=== PATIENT | female | born 1940 | race Hispanic/Latino ===

== ENCOUNTER 2017-08-11 11:56 | Outpatient (CLI) | payer MEDICARE, BC ==
--- NOTE | 2017-08-11 16:40 | MRI ---
MRI OF THE LEFT SHOULDER WITHOUT IV CONTRAST: INDICATION: Left shoulder pain after a fall 2 weeks ago. FINDINGS: The biceps tendon is located. There is a SLAP tear involving the anterior superior and posterior sup erior glenoid labrum with some extension into the biceps anchor best seen on image 10 of series 4. T here is a partial thickness articular surface tear of the infraspinatus measuring 9.6 mm in its great est mediolateral dimensions. There is some intratendinous delamination involving the tendon at its f ootprint measuring approximately 4 mm on image 14 of series 5. No full-thickness tear is grossly debby dent. A small amount of fluid is seen in the subacromial subdeltoid space.. No muscular atrophy is evident. There is moderate AC joint osteoarthrosis with an anterior projecting osteophyte off the di stal clavicle causing mild encroachment. There is an intratendinous region of delamination involving the cranial subscapularis. No enlarged lymph nodes are evident. IMPRESSION: 1. Superior labrum anterior to posterior tear with tear extension into the proximal biceps anchor. 2. Partial-thickness articular surface tear of the mid infraspinatus near the footprint measuring ap proximately 1 cm. There is some intratendinolus delamination into the infraspinatus tendon at the fo otprint measuring approximately 4 mm in size. 3. Moderate acromioclavicular joint osteoarthrosis with mild encroachment. POS: [facility]
== END 2017-08-11 11:57 | disposition home or self-care (01) ==
LOC: SCSMRI 11:56
PROVIDERS: ATTEND Orthopaedic Surgery
DX: M25.512 Pain in left shoulder (principal); T14.8XXD Other injury of unspecified body region, subsequent encounter; M19.019 Primary osteoarthritis, unspecified shoulder

== ENCOUNTER 2017-09-01 23:11 | Emergency (ER) | payer MEDICARE, BC ==
--- NOTE | 2017-09-02 00:01 | RAD ---
LEFT SHOULDER THREE VIEWS: History: Trauma. Comparison: MRI 08-11-17 FINDINGS: There is a mildly comminuted left humeral neck fracture extending to the greater tuberosity. There is less than 1 cm displacement and less than 45 degrees angulation. IMPRESSION: Left humeral neck fracture extending to the greater tuberosity. POS: [facility]
[2017-09-02] MEDS ORDERED: Morphine 4 MG/ML VIAL ONE ×2 (00:05→01:12)
[2017-09-02] MEDS ORDERED: Fentanyl 100 MCG/2 ML VIAL ONE (00:09)
[2017-09-02] MEDS ORDERED: Ketorolac Tromethamine 30 MG/ML VIAL ONE (01:12)
[2017-09-02] MEDS ORDERED: Ondansetron HCl/PF 4 MG/2 ML Vial ONE (02:32)
== END 2017-09-02 02:45 | disposition home or self-care (01) ==
LOC: ERS 23:11
DX: S42.252A Displaced fracture of greater tuberosity of left humerus, initial encounter for closed fracture (principal); S42.292A Other displaced fracture of upper end of left humerus, initial encounter for closed fracture; E11.9 Type 2 diabetes mellitus without complications; Z79.899 Other long term (current) drug therapy; Z79.84 Long term (current) use of oral hypoglycemic drugs; W01.0XXA Fall on same level from slipping, tripping and stumbling without subsequent striking against object, initial encounter
CPT/HCPCS: 96374; 96375; J1885; J2270; J2405; J3010

== ENCOUNTER 2017-10-15 09:51 | Outpatient (CLI) | payer MEDICARE, BC | END 2017-10-15 09:52 | disposition home or self-care (01) | LOC: BICBD 09:51 | PROVIDERS: ATTEND Internal Medicine Rheumatology | DX: Z13.820 Encounter for screening for osteoporosis (principal); M85.852 Other specified disorders of bone density and structure, left thigh | CPT/HCPCS: 77080 ==

== ENCOUNTER 2018-01-14 07:38 | Outpatient (CLI) | payer MEDICARE, BC ==
--- NOTE | 2018-01-14 12:08 | NM ---
NUCLEAR MEDICINE GASTRIC EMPTYING EXAM: HISTORY: Epigastric pain with gastroesophageal reflux disease. TECHNIQUE: A nuclear medicine gastric emptying exam was performed after administration of 2 millicuries of techn etium 99m sulfur colloid mixed with eggs. FINDINGS: Approximately 42% emptying is seen in 30 minutes, approximately 73% emptying is seen in 1 hour, appro ximately 92% emptying is seen at 111 minutes, and 100% emptying is seen at 176 minutes. No gastroeso phageal reflux is seen during the examination. T-1/2 of gastric emptying is 34 minutes. IMPRESSION: Normal gastric emptying exam. POS: [facility]
== END 2018-01-14 07:39 | disposition home or self-care (01) ==
LOC: NM 07:38
PROVIDERS: ATTEND Internal Medicine Gastroenterology
DX: K21.0 Gastro-esophageal reflux disease with esophagitis (principal)
CPT/HCPCS: 78264; A9541

== ENCOUNTER 2018-05-18 07:40 | Outpatient (CLI) | payer MEDICARE, BC ==
--- NOTE | 2018-05-18 09:41 | MRI ---
MRI CERVICAL SPINE: HISTORY: Cervical radiculopathy, M54.12. FINDINGS: Multiplanar, multisequence, noncontrast-enhanced MR images cervical spine obtained. The spinal cord demonstrates some subtle areas of signal abnormality at the C4-5, C5-6, and C6-7 leve ls. This may be due to some myelomalacic changes due to the central disk protrusion at these levels. C1-2, C2-3: Unremarkable. C3-4: There is a mild broad-based disk bulge. No significant degree of central neural foraminal chary rowing is seen. C4-5: There is disk space height loss with irregularity involving the inferior end plate of C4 and s uperior end plate of C5. There is a broad-based central disk-osteophyte complex compressing the thec al sac resulting moderate compression of the thecal sac and mild compression of the spinal cord. The re is moderate bilateral C4-5 neural foraminal narrowing due to uncovertebral osteophyte hypertrophy. C5-6: Disk desiccation is seen. There is a broad-based disk-osteophyte complex centrally compressin g the thecal sac. This results in minimal but not significant evidence of spinal cord compression. The right neural foramen is patent. There is moderate to severe left C5-6 neural foraminal narrowing due to uncovertebral osteophyte hypertrophy. C6-7: Disk desiccation is seen. There is a broad-based disk-osteophyte complex extending from the l eft C6-7 lateral recess into the left C6-7 neural foramen. This results in severe left C6-7 neural f oraminal narrowing. Mild right-sided neural foraminal narrowing is seen. C7-T1: Unremarkable. IMPRESSION: Disk-osteophyte complexes resulting in bilateral C4-5, left C5-6 and C6-7 neural foraminal narrowing. POS: [facility]
== END 2018-05-18 07:41 | disposition home or self-care (01) ==
LOC: TBSIIMAG 07:40
PROVIDERS: ATTEND Orthopaedic Surgery
DX: M54.12 Radiculopathy, cervical region (principal); M99.81 Other biomechanical lesions of cervical region
CPT/HCPCS: 72141

== ENCOUNTER 2018-07-02 14:50 | Outpatient (CLI) | payer MEDICARE, BC ==
--- NOTE | 2018-07-02 16:22 | RAD ---
PA AND LATERAL CHEST RADIOGRAPH: Date: 07-02-18 History: Pre-operative evaluation. Comparison: 06-03-16 FINDINGS: Cardiac silhouette at the upper limits of normal in size. Pulmonary vasculature is within normal limi ts. Lungs are clear. No other interval change. IMPRESSION: 1. No acute cardiopulmonary process. POS: [facility]
== END 2018-07-02 14:51 | disposition home or self-care (01) ==
LOC: BICRAD 14:50
PROVIDERS: ATTEND Family Medicine
DX: Z01.818 Encounter for other preprocedural examination (principal)
CPT/HCPCS: 71046

== ENCOUNTER 2018-07-13 09:56 | Outpatient (CLI) | payer MEDICARE, BC ==
[2018-07-13 11:52] LABS: Hemoglobin 12.6 g/dL (12.0-16.0); Mean Corpuscular Hemoglobin 31.1 pg (27.0-31.0); Mean Corpuscular Volume 94.4 fL (78.0-98.0); Mean Platelet Volume 8.8 fL (7.4-10.4); Platelet Count 259 thou/uL (130-400); RBC Distribution Width 12.5 % (11.5-14.5); Red Blood Cell (RBC) Count 4.06 mill/uL (4.20-5.40); White Blood Cell (WBC) Count 8.1 thou/uL (4.8-10.8)
[2018-07-13 12:01] LABS: Anion Gap 14 mmol/L (10-20); BUN (Urea Nitrogen) 17 mg/dL (9.8-20.1); Calc. Creatinine Clearance 0 mL/min (70-130); Calcium 9.9 mg/dL (7.8-10.44); Carbon Dioxide 25 mmol/L (23-31); Chloride 104 mmol/L (98-107); Estimated GFR-MDRD 55; Glucose 104 mg/dL (83-110); Potassium 3.8 mmol/L (3.5-5.1); Sodium 139 mmol/L (136-145)
[2018-07-13 12:04] LABS: INR-International Normal Ratio 0.9; Prothrombin Time 12.4 SEC (12.0-14.7)
== END 2018-07-13 09:57 | disposition home or self-care (01) ==
LOC: LABBT 09:56
PROVIDERS: ATTEND Surgery
DX: Z01.818 Encounter for other preprocedural examination (principal); M47.12 Other spondylosis with myelopathy, cervical region; M47.22 Other spondylosis with radiculopathy, cervical region
CPT/HCPCS: 80048; 85027; 85610; 85730; 93005; 93010

== ENCOUNTER 2018-07-13 10:00 | Inpatient (IN) | payer MEDICARE, BC ==
[2018-07-13 10:32] VITALS: BMI 31.3
[2018-07-16] MEDS ORDERED: CEFAZOLIN/Water 2 GM/20 ML SYRINGE ONE (06:03)
[2018-07-16] MEDS ORDERED: Thrombin 5000 UNITS/5 ML VIAL ONE (06:35)
[2018-07-16] MEDS ORDERED: Sodium Chloride 0.9% 10 ML ONE (06:36)
[2018-07-16] MEDS ORDERED: Fentanyl 100 MCG/2 ML VIAL ONE ×2 (07:24→11:02)
[2018-07-16] MEDS ORDERED: Promethazine HCl 25 MG/ML VIAL IM PRN ×2 (10:19→10:26)
[2018-07-16] MEDS ORDERED: tiZANidine HCl 4 MG TAB PO PRN (10:19)
[2018-07-16] MEDS ORDERED: Milk Of Magnesia 30 ML UDCUP PO PRN (10:19)
[2018-07-16] MEDS ORDERED: Bisacodyl 10 MG SUPP PR PRN (10:19)
[2018-07-16] MEDS ORDERED: Fleet Enema 133 ML BOT PR PRN (10:19)
[2018-07-16] MEDS ORDERED: Acetaminophen/Codeine 30-300mg Tablet PO PRN (10:19)
[2018-07-16] MEDS ORDERED: HYDROcodone/Acetaminophen 7.5/325 mg Tablet PO PRN (10:19)
[2018-07-16] MEDS ORDERED: Acetaminophen 325 MG TAB PO PRN (10:19)
[2018-07-16] MEDS ORDERED: Mag-Al 1200 mg/1200 mg/30 ML UDCUP PO PRN (10:19)
[2018-07-16] MEDS ORDERED: PACU-Morphine 4MG/ML VIAL SLOW IVP PRN (10:26)
[2018-07-16] MEDS ORDERED: Promethazine HCl 25 MG/ML VIAL SLOW IVP PRN (10:26)
[2018-07-16] MEDS ORDERED: Meperidine HCl/PF 25 MG/ML VIAL SLOW IVP PRN (10:26)
[2018-07-16] MEDS ORDERED: Morphine Sulfate 2 MG/ML SYRINGE SLOW IVP PRN (10:26)
[2018-07-16] MEDS ORDERED: Ondansetron HCl/PF 4 MG/2 ML Vial IVP PRN (10:26)
[2018-07-16] MEDS ORDERED: HYDROmorphone 2 MG/ML VIAL SLOW IVP PRN (10:26)
[2018-07-16] MEDS: Sodium Chloride 0.9% 1,000 ML IV SCH (12:10)
--- NOTE | 2018-07-16 12:14 | OP ---
DATE OF PROCEDURE: 07/16/2018 LOCATION: OR 11. WOUND TYPE: Type 1 wound. SURGEON: Benson Post M.D. FURNACE INSTALLER: Rob Lara PA-C. 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 PROCEDURES: 1. Anterior C4-C5, C5-C6, C6-C7 diskectomies for decompression of spinal cord and nerve roots. 2. Preparation of endplates for arthrodesis with placement of interbody spacer packed with local bon e autograft obtained from same incision and allograft for arthrodesis C4-C5, C5-C6, C6-C7. 3. Anterior cervical plate and screw fixation C4-C5, C6-C7. 4. Use of operative microscope for microdissection. DESCRIPTION OF PROCEDURE: After informed consent was obtained from the patient, the patient brought to OR 11. Proper patient pause and the identification was carried out. She was placed in excellent endotracheal anesthesia and positioned supine on the OR table. All appropriate points were padded. A right anterior oblique garry was made for approach to the C4 through C7 spinal segments and this reg ion was sterilely cleansed, prepared, and draped. After proper patient pause and identification, the wound was then opened with a combination of sharp, monopolar and blunt dissection. We proceeded lat eral to the larynx, trachea, pharynx, esophagus bundle and medial to the right carotid sheath. We id entified the prevertebral layer of deep cervical fascia and the longus colli muscles were swept later ally and localization film confirmed our area of interest. We then brought the microscope in and per formed distraction at C4-C5 and a diskectomy and decompression of spinal cord and C5 nerve roots. En dplates were prepared and a spacer packed with graft was placed for arthrodesis. Distraction was the n released and distraction at C5-C6 then occurred and diskectomy was performed there for decompressio n of the neural elements. The spacer was then placed, packed with graft for arthrodesis at that segm ent and distraction then released. Again, the C6-C7 diskectomy was performed with decompression of s luma cord and nerve roots and endplates were prepared and an interbody spacer was again packed with graft and placed at C6-C7. The microscope was then removed and anterior cervical plate and screw fix ation occurred with gross and fluoroscopic visualization at C4, C5, C6, C7, satisfied with our constr uct, hemostasis was maximized throughout. The wound was copiously irrigated and closed in anatomic l tong over a drain. The patient then emerged from anesthesia.
[2018-07-16] MEDS: CEFAZOLIN/Water 2 GM/20 ML SYRINGE SLOW IVP SCH ×2 (14:19→21:05)
[2018-07-16] MEDS ORDERED: Prevnar 13-Val Conj/PF 0.5 ML SYRINGE IM ONE (16:00)
[2018-07-16] MEDS: metFORMIN 500 MG TAB PO SCH (18:06)
[2018-07-16] MEDS: Pregabalin 75 MG CAP PO SCH (20:55)
[2018-07-16] MEDS ORDERED: Atorvastatin Calcium 10 MG TAB PO SCH (21:00)
[2018-07-16] MEDS: traMADol HCl 50 MG TAB PO PRN (21:00)
[2018-07-17] MEDS: CEFAZOLIN/Water 2 GM/20 ML SYRINGE SLOW IVP SCH (06:00)
[2018-07-17] MEDS ORDERED: Dapagliflozin Propanediol [Farxiga] 10 MG PO SCH (09:00)
[2018-07-17] MEDS ORDERED: Alogliptin 25 MG TAB PO SCH (09:00)
[2018-07-17] MEDS ORDERED: Losartan 25 MG TAB PO SCH (09:00)
[2018-07-17] MEDS ORDERED: Pregabalin 75 MG CAP ONE (09:54)
[2018-07-17] MEDS: traMADol HCl 50 MG TAB PO PRN ×2 (10:00→17:32)
[2018-07-17] MEDS: metFORMIN 500 MG TAB PO SCH ×2 (10:00→17:32)
[2018-07-17] MEDS: Pregabalin 75 MG CAP PO SCH (10:00)
--- NOTE | 2018-07-17 11:26 | PRG ---
DATE OF SERVICE: 07/17/2018 SUBJECTIVE: Ms. Rosenbaum is now postoperative day #1, having undergone C4-C7 ACDF. Her drain output has been zero overnight. She does have a sore throat and some posterior neck pain, but otherwise imp rovement in symptoms, especially into left upper extremity pain. She has good strength in the bilate ral upper extremities. She is not currently wearing her [place] J collar, although it is in bed. PLAN: She does live alone and will possibly need inpatient rehab, so we will have case management wo rk on this for us. Otherwise, the patient is cleared for discharge once arrangements have been made. Please call with changes in patient's neurologic status.
[2018-07-17] MEDS: Sodium Chloride 0.9% 1,000 ML IV SCH (12:40)
[2018-07-17 18:43] VITALS: BP 145/79; TEMP 97.2
== END 2018-07-17 18:43 | DRG 472 ==
LOC: SURG A 07-16 05:39
PROVIDERS: ADMIT Surgery; ATTEND Surgery
PROC: 0RG20A0 Fusion of 2 or more Cervical Vertebral Joints with Interbody Fusion Device, Anterior Approach, Anterior Column, Open Approach (ICD-10-PCS; principal; 2018-07-16)
DX: M48.02 Spinal stenosis, cervical region (principal); M47.12 Other spondylosis with myelopathy, cervical region; M54.12 Radiculopathy, cervical region
CPT/HCPCS: 36416; 76001; 80048; 85027; 85610; 85730; 93005; 93010; 96374; C1713; C1776; G8978-GP-CL; G8979-GP-CJ; G8987-GO-CJ; G8988-GO-CI; G8996-GN-CJ; G8997-GN-CH; J0131; J2270; J3010; J3490

== ENCOUNTER 2018-09-02 09:33 | Outpatient (CLI) | payer MEDICARE, BC ==
--- NOTE | 2018-09-02 11:06 | RAD ---
CERVICAL SPINE THREE VIEWS: History: 78-year-old female with history of cheiralgia. Cervical radiculopathy. Status post neck surgery. FINDINGS: Anterior cervical fusion changes are noted at C4, C5, C6, and C7 with intradiscal prosthesis. No evid ence for malalignment. No significant abnormal prevertebral soft tissue swelling. There is internal f acet arthrosis changes. IMPRESSION: Anterior cervical fusion changes at C4, C5, C6 and C7. No significant malalignment. POS: [facility]
== END 2018-09-02 09:34 | disposition home or self-care (01) ==
LOC: TBSIIMAG 09:33
PROVIDERS: ATTEND Surgery
DX: M47.12 Other spondylosis with myelopathy, cervical region (principal); M47.22 Other spondylosis with radiculopathy, cervical region; M50.10 Cervical disc disorder with radiculopathy, unspecified cervical region; M50.00 Cervical disc disorder with myelopathy, unspecified cervical region
CPT/HCPCS: 72040

== ENCOUNTER 2019-01-15 09:19 | Outpatient (CLI) | payer MEDICARE, BC ==
--- NOTE | 2019-01-15 10:05 | BD ---
EXAM: Bone densitometry using DEXA HISTORY: 78 yo female. Screening for postmenopausal osteoporosis FINDINGS: L1--bone mineral density 0.815 g/sq cm; T score -1.6 ; Z score 0.7 L2--bone mineral density 0.917 g/sq cm; T score -1.0 ; Z score 1.5 L3--bone mineral density 0.944 g/sq cm; T score -1.3 ; Z score 1.4 L4--bone mineral density 1.043 g/sq cm; T score -0.2 ; Z score 2.6 Total L1-L4--bone mineral density 0.935 g/sq cm; T score -1.0 ; Z score 1.5 Left femoral neck--bone mineral density0.648; T score -1.8 ; Z score 0.4 Total proximal left femur--bone mineral density 0.838; T score -0.9 ; Z score 1.1 The 10 year fracture risk for a major osteoporotic fracture is 10% and for hip fracture is 2.7% IMPRESSION: Osteopenia
== END 2019-01-15 09:20 | disposition home or self-care (01) ==
LOC: BICMAMMO 09:19
PROVIDERS: ATTEND Internal Medicine Rheumatology
DX: M81.0 Age-related osteoporosis without current pathological fracture (principal); M85.89 Other specified disorders of bone density and structure, multiple sites
CPT/HCPCS: 77080

== ENCOUNTER 2019-02-08 08:41 | Outpatient (CLI) | payer MEDICARE, BC ==
--- NOTE | 2019-02-08 10:10 | RAD ---
Esophagram air contrast HISTORY: Dysphagia. Burning chest pain. FINDINGS: Air contrast and single column barium evaluation of the esophagus shows diminished primary and secondary peristalsis. Moderate degree of nonpropulsive tertiary type contractions. Small hiatal hernia with moderate amount of gastroesophageal reflux. A 12 mm barium tablet traversed the esophagus without holdup. IMPRESSION: Small hiatal hernia with gastroesophageal reflux. Presbyesophagus. No evidence of esophageal mass or obstruction.
== END 2019-02-08 08:42 | disposition home or self-care (01) ==
LOC: RAD 08:41
PROVIDERS: ATTEND Physician Assistant Medical
DX: R13.10 Dysphagia, unspecified (principal); R10.13 Epigastric pain; K21.9 Gastro-esophageal reflux disease without esophagitis; K44.9 Diaphragmatic hernia without obstruction or gangrene
CPT/HCPCS: 74220

== ENCOUNTER 2019-03-02 10:55 | Outpatient (CLI) | payer MEDICARE, BC ==
--- NOTE | 2019-03-03 16:39 | RAD ---
MODIFIED BARIUM SWALLOW: 03/03/19 CLINICAL INDICATION: Dysphagia, unspecified; feeding difficulties. FINDINGS: There is oral ingestion of varying consistencies of barium contrast with trace laryngeal penetration although no tracheal aspiration identified. Correlate with speech pathology report for further detail s. IMPRESSION: Trace laryngeal penetration. POS: [facility]
== END 2019-03-02 10:56 | disposition home or self-care (01) ==
PROVIDERS: ATTEND Physician Assistant Medical
DX: R13.10 Dysphagia, unspecified (principal); R63.3 Feeding difficulties
CPT/HCPCS: 74230

== ENCOUNTER 2019-04-21 09:22 | Outpatient (CLI) | payer MEDICARE, BC | END 2019-04-21 09:23 | disposition home or self-care (01) | PROVIDERS: ATTEND Physician Assistant Medical | DX: R13.10 Dysphagia, unspecified (principal); R63.3 Feeding difficulties | CPT/HCPCS: 74230 ==

== ENCOUNTER 2019-05-28 19:30 | Outpatient (CLI) | payer MEDICARE, BC | END 2019-05-28 19:31 | disposition home or self-care (01) | LOC: SLEEPLAB 19:30 | PROVIDERS: ATTEND Family Medicine | DX: G47.33 Obstructive sleep apnea (adult) (pediatric) (principal); R06.83 Snoring; G47.10 Hypersomnia, unspecified; E11.9 Type 2 diabetes mellitus without complications; E78.5 Hyperlipidemia, unspecified; I73.9 Peripheral vascular disease, unspecified; K57.92 Diverticulitis of intestine, part unspecified, without perforation or abscess without bleeding; K85.90 Acute pancreatitis without necrosis or infection, unspecified; M19.90 Unspecified osteoarthritis, unspecified site; R13.10 Dysphagia, unspecified; G62.9 Polyneuropathy, unspecified; I45.9 Conduction disorder, unspecified; G47.61 Periodic limb movement disorder; R09.02 Hypoxemia | CPT/HCPCS: 95810 ==

== ENCOUNTER 2019-06-30 19:30 | Outpatient (CLI) | payer MEDICARE, BC | END 2019-06-30 19:31 | disposition home or self-care (01) | LOC: SLEEPLAB 19:30 | PROVIDERS: ATTEND Family Medicine | DX: G47.33 Obstructive sleep apnea (adult) (pediatric) (principal); E78.5 Hyperlipidemia, unspecified; E11.40 Type 2 diabetes mellitus with diabetic neuropathy, unspecified; E11.51 Type 2 diabetes mellitus with diabetic peripheral angiopathy without gangrene; I10 Essential (primary) hypertension; G47.61 Periodic limb movement disorder | CPT/HCPCS: 95811 ==

== ENCOUNTER → 2019-08-31 | Day surgery (SDC) | payer MEDICARE, BC ==
[~2019-08-31] MED LIST: Benzocaine 20% Spray 60 ML CAN ONE
== END ==
LOC: ENDO/OP 07:33
PROVIDERS: ATTEND Internal Medicine Gastroenterology
DX: R13.12 Dysphagia, oropharyngeal phase (principal); E11.9 Type 2 diabetes mellitus without complications; E78.00 Pure hypercholesterolemia, unspecified; I10 Essential (primary) hypertension; Z79.84 Long term (current) use of oral hypoglycemic drugs; Z79.899 Other long term (current) drug therapy; Z88.0 Allergy status to penicillin

== ENCOUNTER 2019-10-19 12:50 | Outpatient (CLI) | payer MEDICARE, BC ==
[2019-10-19] MEDS ORDERED: Magnevist 469MG/ML 20 ML VIAL ONE ×2 (13:44)
--- NOTE | 2019-10-19 14:48 | MRI ---
CERVICAL SPINE MRI WITH AND WITHOUT CONTRAST: HISTORY: Headache at the base of skull. Right arm numbness. Fusion surgery July 16, 2019. COMPARISON: 05/18/2018. TECHNIQUE: Cervical spine MRI is performed with and without intravenous gadolinium administration. Multisequenti al, multiplanar imaging was performed. FINDINGS: Anterior fusion plate with transvertebral body screw from C4 through C7. Metallic susceptibility talia fact is noted from the C4-C7 levels. Remaining cervical vertebrae and visualized upper thoracic vertebrae have appropriate signal intensity. No fracture. No significant STIR hyperintensity to suggest vertebral body edema or ligamentous injury. Spondylolisthesis: 2.8 mm of anterolisthesis of C2 upon C3 and 2.4 mm of anterolisthesis of 3 upon C4. Postcontrast images do not demonstrate any abnormal enhancement with regards to the vertebral bodies. Visualized brain parenchyma, cervicomedullary junction, cervical cord and the upper thoracic cord hav e a normal size and signal intensity. No cord malacia, cord atrophy or pathologic enhancement. C2-C3: No significant central canal stenosis. Mild bilateral foraminal narrowing. C3-C4: No significant canal stenosis. Mild bilateral foraminal narrowing. C4-C5: Broad-based disc-osteophyte results in moderate central canal stenosis. There is deformity of the cervical cord, without cord hyperintensity. The degree of central canal stenosis has not changed since the previous exam. Moderate to severe bilateral foraminal narrowing.. C5-C6: Broad-based disc-osteophyte complex abuts the thecal sac. Subarachnoid space is still maintain ed. Nevertheless, there is flattening of the thecal sac and cervical cord. Mild to moderate central canal stenosis. Mild to moderate bilateral foraminal narrowing. C6-C7: Broad-based disc-osteophyte complex abuts the thecal sac. Subarachnoid space is maintained. No significant cord abnormality. Right neural foramen is patent. Moderate to severe left foraminal narrowing. C7-T1: No significant central canal stenosis. Neural foramina are patent. IMPRESSION: 1. Interval cervical fusion from C4 through C7. No evidence of abnormal signal intensity. 2. Persistent anterolisthesis of C2 upon C3 and C3 upon C4. 3. Moderate to severe bilateral foraminal narrowing at C4-C5 and moderate to severe left foraminal na rrowing at C6-C7. 4. Moderate central canal stenosis at C4-C5 and mild to moderate central canal stenosis at C5-C6. Transcribed Date/Time: 10/19/2019 3:12 PM
--- NOTE | 2019-10-19 15:03 | CT ---
CT OF THE CERVICAL SPINE: DATE: 10/19/2019. HISTORY: Headaches, pain at the skull base, numbness of the right upper extremity. TECHNIQUE: Axial CT imaging at 2 mm intervals through the cervical spine without contrast. Coronal and sagittal reformatted imaging obtained. FINDINGS: Imaged lung apices unremarkable. Anterior diskectomy and fusion hardware present at the C4-5/C5-6/C6 -7 levels. There is questionable subtle lucency adjacent to the distal tip of the anterior fusion screws at the C4, C5, and C6 levels. The fusion plate is not flush with the ventral aspect of the C4, C5, or C6 ve rtebral bodies, which is difficult to assess for interval change when compared to prior radiographs s econdary to the degree of streak artifact. This finding may signify that the fusion plate has slight ly backed away from the ventral aspect of the vertebral bodies but this could potentially be on the b asis of anterior osteophyte formation associated with these vertebral bodies limiting the ability of the fusion plate to be flush with the anterior vertebral body margins. The craniocervical junction appears intact. There is moderate degenerative change at the atlantoaxia l interspace. There is minimal anterolisthesis at C2-3 and C3-4. Evaluation for central canal and/or neural foraminal stenosis is limited on routine CT. C2-3: Bilateral facet and uncovertebral osteophyte formation, right greater than left. There is fra gmentation of facet joint osteophyte on the right extending into the right neural foramen with probab le moderate right neural foraminal stenosis. No osseous cause of significant central canal or neural foraminal stenosis. C3-4: Mild bilateral facet hypertrophy, right greater than left. No osseous cause of significant ce ntral canal or neural foraminal stenosis. C4-5: There is disk space narrowing with degenerative end plate change and posterior osteophyte. Th ere is an intervertebral disk device present. There is facet and uncovertebral osteophyte formation. Posterior osteophyte causes probable mild central canal stenosis. Moderate bilateral neural forami nal stenosis on the basis of facet and uncovertebral osteophyte formation noted, left greater than ri ght. C5-6: There is disk space narrowing and degenerative end plate change with intervertebral disk devic e. There is posterior osteophyte formation with mild central canal stenosis. There is significant b ilateral facet and uncovertebral osteophyte formation, left greater than right, with severe left and mild right neural foraminal stenosis. C6-7: Prominent left-sided facet and uncovertebral osteophyte formation with severe left neural fora john stenosis. No osseous cause of significant central canal or right neural foraminal stenosis. T here is disk space narrowing with degenerative end plate change and vacuum disk formation. C7-T1: No osseous cause of significant central canal or neural foraminal stenosis. No worrisome or lytic blastic bone lesion. No acute fracture or evidence of dislocation. IMPRESSION: Multilevel postoperative and degenerative change within the cervical spine as detailed above. There is questionable subtle lucency adjacent to the distal tips of the anterior screws at C4, C5, and C6 w hich may signify a degree of loosening of the hardware. Recommend correlation with radiographs of th e cervical spine to be compared to the 09/02/2018 cervical spine radiographs. CODE T POS: [facility]
--- NOTE | 2019-10-19 15:18 | MRI ---
Exam: Brain MRI with and without contrast HISTORY: Headache. Dizziness. Right arm numbness. COMPARISON: None FINDINGS: Gradient echo sequence: No hemorrhage Calvarium: Appropriate T1 marrow signal intensity Midline brain parenchyma: Unremarkable Cerebrum:No parenchymal mass, mass effect or midline shift. Age-appropriate atrophy. Cortical hannah-wh ite matter differentiation is preserved. Minimal T2 and FLAIR white matter hyperintensities, likely chronic small vessel ischemic change Ventricles: No evidence of hydrocephalus. Sinuses and mastoid air cells: Adequate aeration Diffusion: Central arterial flow is maintained. Absent restricted diffusion. Postcontrast images: No pathologic enhancement of the brain parenchyma. IMPRESSION: Unremarkable pre and postcontrast brain MRI.
--- NOTE | 2019-10-19 15:19 | RAD ---
EXAM: 5 views of the cervical spine HISTORY: Headaches COMPARISON: None FINDINGS: AP, lateral, flexion/extension, and open mouth odontoid views of the cervical spine shows t he patient to be status post anterior fusion of C4-C7 with an anterior plate and screws. The plate is not completely adjacent to the anterior aspect of the vertebral bodies. There may be a small amoun t of lucency surrounding the screws at C4, C5, and C6. Disc spacers are seen in the intervening disc spaces. Alignment is unchanged with flexion and extension. IMPRESSION: Postsurgical changes of cervical spine with questionable hardware loosening.
== END 2019-10-19 12:51 | disposition home or self-care (01) ==
LOC: TBSIIMAG 12:50
PROVIDERS: ATTEND Physician Assistant Surgical
DX: M48.02 Spinal stenosis, cervical region (principal); M50.10 Cervical disc disorder with radiculopathy, unspecified cervical region; H53.8 Other visual disturbances; R51 Headache; R42 Dizziness and giddiness; G95.89 Other specified diseases of spinal cord; M43.12 Spondylolisthesis, cervical region; Z98.1 Arthrodesis status
CPT/HCPCS: 70553; 72050; 72125; 72156; 82565; A9579

== ENCOUNTER 2019-12-23 08:43 | Inpatient (IN) | payer MEDICARE, BC ==
[2019-12-22 14:10] VITALS: BMI 31.3
[2019-12-23] MEDS ORDERED: PHENYLEPHRINE-NS 100 MCG/ML 10 ML SYRINGE ONE (10:02)
[2019-12-23] MEDS ORDERED: diphenhydrAMINE 50 MG/ML VIAL ONE (10:02)
[2019-12-23] MEDS ORDERED: EPHEDRINE 25 MG/5 ML SYRINGE ONE (10:02)
[2019-12-23] MEDS ORDERED: Rocuronium Bromide 10 MG/ML (10ML VIAL) ONE (10:02)
[2019-12-23] MEDS ORDERED: Dexamethasone 20 MG/5 ML VIAL ONE (10:02)
[2019-12-23] MEDS ORDERED: PROPOFOL 200 MG/20 ML VIAL ONE (10:02)
[2019-12-23] MEDS ORDERED: Ondansetron PF 4 MG/2 ML Vial ONE (10:02)
[2019-12-23] MEDS ORDERED: Glycopyrrolate 0.2 MG/ML 5 ML SYRINGE ONE (10:02)
[2019-12-23 10:53] LABS: Mean Corpuscular HGB CONC 33.1 g/dL (32.0-36.0); Mean Corpuscular Hemoglobin 31.1 pg (27.0-31.0); Mean Corpuscular Volume 93.9 fL (78.0-98.0); Mean Platelet Volume 8.5 fL (7.4-10.4); Platelet Count 240 thou/uL (130-400); RBC Distribution Width 12.4 % (11.5-14.5); Red Blood Cell (RBC) Count 3.85 mill/uL (4.20-5.40); White Blood Cell (WBC) Count 7.6 thou/uL (4.8-10.8)
[2019-12-23 10:59] LABS: PTT 28.5 SEC (22.9-36.1); Prothrombin Time 12.8 SEC (12.0-14.7)
[2019-12-23 11:12] LABS: Anion Gap 14 mmol/L (10-20); BUN (Urea Nitrogen) 25 mg/dL (9.8-20.1); Calc. Creatinine Clearance 37 mL/min (70-130); Carbon Dioxide 26 mmol/L (23-31); Chloride 103 mmol/L (98-107); Estimated GFR-MDRD 39; Glucose 93 mg/dL (83-110); Potassium 4.8 mmol/L (3.5-5.1); Sodium 138 mmol/L (136-145)
[2019-12-23] MEDS ORDERED: Thrombin 5000 UNITS/5 ML VIAL ONE (11:34)
[2019-12-23] MEDS ORDERED: Bacitracin Zinc Ointment 30 gm TUBE ONE (11:34)
[2019-12-23] MEDS ORDERED: Fentanyl 100 MCG/2 ML VIAL ONE ×4 (11:38→15:37)
--- NOTE | 2019-12-23 12:22 | EKG ---
Test Reason : PREOP Blood Pressure : / mmHG Vent. Rate : 048 BPM Atrial Rate : 048 BPM P-R Int : 148 ms QRS Dur : 084 ms QT Int : 476 ms P-R-T Axes : 028 -09 025 degrees QTc Int : 425 ms Marked sinus bradycardia Abnormal ECG When compared with ECG of 13-JUL-2018 11:02, No significant change was found Confirmed by AIDE RIVERS, SGuy ([id number]) on 12/23/2019 12:22:08 PM Referred By: AYAKA Confirmed By:DR. Delaney NOBLE MD
[2019-12-23] MEDS ORDERED: PROPOFOL 20 ML ONE (14:16)
[2019-12-23] MEDS ORDERED: Fleet Enema 133 ML BOT PR PRN (14:46)
[2019-12-23] MEDS ORDERED: Ondansetron PF 4 MG/2 ML Vial IVP PRN (14:46)
[2019-12-23] MEDS ORDERED: Bisacodyl 10 MG SUPP PR PRN (14:46)
[2019-12-23] MEDS ORDERED: HYDROcodone/Acetaminophen 7.5/325 mg Tablet PO PRN (14:46)
[2019-12-23] MEDS ORDERED: Milk Of Magnesia 30 ML UDCUP PO PRN (14:46)
[2019-12-23] MEDS ORDERED: Mag-Al 1200 mg/1200 mg/30 ML UDCUP PO PRN (14:46)
[2019-12-23] MEDS ORDERED: Acetaminophen 325 MG TAB PO PRN (14:46)
[2019-12-23] MEDS: Morphine 2 MG/ML SYRINGE SLOW IVP PRN ×2 (17:23→19:58)
[2019-12-23] MEDS: Sodium Chloride 0.9% 1,000 ML IV SCH (17:23)
[2019-12-23] MEDS: metFORMIN 500 MG TAB PO SCH (17:23)
[2019-12-23] MEDS: Acetaminophen/Codeine 30-300mg Tablet PO PRN ×2 (18:36→22:24)
[2019-12-23] MEDS: Pregabalin 75 MG CAP PO SCH (19:57)
[2019-12-23] MEDS: Atorvastatin Calcium 10 MG TAB PO SCH (19:58)
[2019-12-23] MEDS: CEFAZOLIN 2 GM in Premix Bag 1 BAG IVPB SCH (19:58)
[2019-12-24] MEDS: CEFAZOLIN 2 GM in Premix Bag 1 BAG IVPB SCH ×3 (04:11→20:46)
[2019-12-24] MEDS: Sodium Chloride 0.9% 1,000 ML IV SCH ×2 (04:15→17:05)
[2019-12-24] MEDS: Acetaminophen/Codeine 30-300mg Tablet PO PRN ×2 (06:41→12:12)
[2019-12-24] MEDS ORDERED: Cepastat Lozenges 1 LOZ PO PRN (07:49)
[2019-12-24] MEDS: Alogliptin 6.25 MG TAB PO SCH (08:27)
[2019-12-24] MEDS: tiZANidine HCl 4 MG TAB PO PRN ×2 (08:27→17:41)
[2019-12-24] MEDS: traMADol HCl 50 MG TAB PO PRN ×3 (08:27→23:21)
[2019-12-24] MEDS: Pregabalin 75 MG CAP PO SCH ×2 (08:29→20:46)
[2019-12-24] MEDS: Losartan 25 MG TAB PO SCH (08:29)
[2019-12-24] MEDS: Empagliflozin 25 MG TAB PO SCH (08:29)
[2019-12-24] MEDS: metFORMIN 500 MG TAB PO SCH ×2 (08:29→17:40)
--- NOTE | 2019-12-24 09:51 | OP ---
DATE OF PROCEDURE: 12/23/2019 LOCATION: OR 12. HARNESS WORKER: Bee Wells PA-C. WOUND CLASSIFICATION: Type 1 wound. PREPROCEDURE DIAGNOSES: 1. Rheumatoid arthritis. 2. Progression of cervical stenosis posteriorly with myelopathy. 3. Pseudarthrosis, on disease-modifying antirheumatic drugs. POSTPROCEDURE DIAGNOSES: 1. Rheumatoid arthritis. 2. Progression of cervical stenosis posteriorly with myelopathy. 3. Pseudarthrosis, on disease-modifying antirheumatic drugs. PROCEDURES PERFORMED: 1. C4-C5, C5-C6, C6-C7 laminectomies, partial facetectomies, and foraminotomies. 2. Exploration of spinal fusion. 3. Screw and shaka fixation posterolaterally, C4, C5, C6, and C7. 4. Posterolateral arthrodesis with local bone autograft obtained from same incision and allograft, C4, C5, C6, and C7. DESCRIPTION OF PROCEDURE: After informed consent was obtained from the patient, the patient was brought to the OR. Proper patient, pause, and identification were carried out. She was placed under excellent general endotracheal anesthesia and positioned prone on the OR table. All appropriate points were padded. We secured the [place] ana to her skull prior to flipping. Secured the cervical spine in neutral position. A linear garry was made in the posterior cervical spine. This region was sterilely cleansed, prepared, and draped. Proper patient, pause, and identification were carried out. The wound was then opened with a combination of sharp, monopolar, and blunt dissection. C4, C5, C6, and C7 segments were exposed. I explored the spinal fusion. There was no evidence of fusion and as I suspected based on the preoperative CT. I then turned my attention to placement of screws at C4, C5, C6, C7, decompression of C4, C5, C6, C7, laminectomy, partial facetectomy, and foraminotomies and then placed rods with final tightening. Local bone autograft and allograft were placed over decorticated section of the posterolateral mass for arthrodesis initiation. Copious irrigation occurred throughout as did maximizing hemostasis. The wound was closed in anatomic layers following sprinkling of vancomycin powder. Job ID: [id number]
--- NOTE | 2019-12-24 12:01 | PRG ---
DATE OF SERVICE: 12/24/2019 Ms. Rosenbaum is postoperative day #1, C4-C7 laminectomy, exploration of fusion, and C4-C7 fusion. She is doing well this morning with good strength throughout her extremities. Pain control has been an issue, so she will need at least another day in the hospital. I think that inpatient rehab would be the best course of action. Job ID: [id number]
[2019-12-24] MEDS: Morphine 2 MG/ML SYRINGE SLOW IVP PRN (14:47)
[2019-12-24] MEDS: Atorvastatin Calcium 10 MG TAB PO SCH (20:46)
[2019-12-25] MEDS: Acetaminophen/Codeine 30-300mg Tablet PO PRN ×4 (02:35→22:34)
[2019-12-25] MEDS: CEFAZOLIN 2 GM in Premix Bag 1 BAG IVPB SCH ×2 (04:16→12:44)
--- NOTE | 2019-12-25 08:37 | PRG ---
DATE OF SERVICE: 12/25/2019 Ms. Marisol Rosenbaum is 2 days out from a decompressive laminectomy in the cervical spine. Her T-max overnight was 99.2. She is moving her arms and legs. She is anticipating a transfer to rehab and was thinking that might happen on Friday. We had a long discussion about the increasing rate of viral illness in our community in her age. I would not like her to be in the hospital if it starts to fill with COVID-19 patients. She would like to visit with her family today in the hospital and perhaps transfer her as early this afternoon to inpatient rehabilitation. I think she will do well there. Job ID: [id number]
[2019-12-25] MEDS: Losartan 25 MG TAB PO SCH (09:03)
[2019-12-25] MEDS: metFORMIN 500 MG TAB PO SCH ×2 (09:04→17:30)
[2019-12-25] MEDS: Empagliflozin 25 MG TAB PO SCH (09:04)
[2019-12-25] MEDS: Alogliptin 6.25 MG TAB PO SCH (09:05)
[2019-12-25] MEDS: Pregabalin 75 MG CAP PO SCH ×2 (09:18→22:30)
[2019-12-25] MEDS: Sodium Chloride 0.9% 1,000 ML IV SCH ×2 (12:04→22:31)
[2019-12-25] MEDS: tiZANidine HCl 4 MG TAB PO PRN (12:51)
[2019-12-25] MEDS: Atorvastatin Calcium 10 MG TAB PO SCH (22:31)
[2019-12-26] MEDS: Acetaminophen/Codeine 30-300mg Tablet PO PRN ×4 (04:18→20:30)
--- NOTE | 2019-12-26 07:43 | PRG ---
DATE OF SERVICE: I saw Marisol Rosenbaum in her hospital room this morning. She worked with Physical Therapy yesterday. She got up onto the walker and made some steps back and forth in the room with some assistance. Her family was able to visit her yesterday. She is anxious about going to inpatient rehabilitation, where her family will be unable to visit. Along the electronically recorded vital signs, I do not see any fevers. I do see blood pressures between the 90s and 140s. Ms. Rosenbaum moves her legs well in bed. She does not have any new deficits that she notes. We are going to make arrangements for Ms. Rosenbaum to move to inpatient rehabilitation. If they can take her today, I would like that to happen. She can have her family visit in the morning if they are allowed in the hospital and thereafter, transfer. If no transfer is going to be made on Friday, then it can be done tomorrow. Job ID: [id number] MTDD
[2019-12-26] MEDS: Empagliflozin 25 MG TAB PO SCH (09:12)
[2019-12-26] MEDS: Alogliptin 6.25 MG TAB PO SCH (09:12)
[2019-12-26] MEDS: Losartan 25 MG TAB PO SCH (09:13)
[2019-12-26] MEDS: metFORMIN 500 MG TAB PO SCH ×2 (09:14→17:29)
[2019-12-26] MEDS: Pregabalin 75 MG CAP PO SCH ×2 (09:14→20:29)
[2019-12-26] MEDS: tiZANidine HCl 4 MG TAB PO PRN ×2 (11:38→20:29)
[2019-12-26] MEDS: Sodium Chloride 0.9% 1,000 ML IV SCH (16:42)
[2019-12-26] MEDS: traMADol HCl 50 MG TAB PO PRN (17:28)
[2019-12-26] MEDS: Atorvastatin Calcium 10 MG TAB PO SCH (20:30)
[2019-12-26 22:18] VITALS: BP 111/70; TEMP 99.2
== END 2019-12-26 20:55 | DRG 472 ==
LOC: SURG A 08:56
PROVIDERS: ADMIT Surgery; ATTEND Surgery
PROC: 0RG2071 Fusion of 2 or more Cervical Vertebral Joints with Autologous Tissue Substitute, Posterior Approach, Posterior Column, Open Approach (ICD-10-PCS; principal; 2019-12-23)
PROC: 00NW0ZZ Release Cervical Spinal Cord, Open Approach (ICD-10-PCS; 2019-12-23)
DX: M48.02 Spinal stenosis, cervical region (principal); M47.12 Other spondylosis with myelopathy, cervical region; M45.2 Ankylosing spondylitis of cervical region; Q74.0 Other congenital malformations of upper limb(s), including shoulder girdle
CPT/HCPCS: 36415; 36416; 76000; 80048; 85027; 85610; 85730; 86850; 86900; 86901; 93005; 93010; C1713; J0690; J1100; J1200; J2270; J2405; J2704; J3010; J3370; J3490; L0174

== ENCOUNTER 2020-01-19 16:14 | Outpatient (CLI) | payer MEDICARE, BC ==
--- NOTE | 2020-01-19 17:26 | RAD ---
CERVICAL SPINE RADIOGRAPHS THREE VIEWS: 01/19/20 PROVIDED CLINICAL HISTORY: Neck pain. FINDINGS: Comparison 10/19/19. Changes of ACDF at C4 through C7 redemonstrated. Lucency about the screws at the C4, C5 and C6 levels again seen. Anterolisthesis of C2 on C3 and C3 on C4 is again noted. Interval placement of bilateral articular pillar screws and vertical interconnecting rods. No evidence for fracture. No prevertebral soft tissue swelling apparent. The visualized lung apices appear clear. IMPRESSION: Interval postoperative change. POS: [facility]
== END 2020-01-19 16:15 | disposition home or self-care (01) ==
LOC: BICRAD 16:14
PROVIDERS: ATTEND Physician Assistant
DX: M50.10 Cervical disc disorder with radiculopathy, unspecified cervical region (principal); M50.00 Cervical disc disorder with myelopathy, unspecified cervical region; M48.02 Spinal stenosis, cervical region; Z98.890 Other specified postprocedural states
CPT/HCPCS: 72040

== ENCOUNTER 2020-01-21 15:49 | Emergency (ER) | payer MEDICARE, BC ==
[~2020-01-21 15:49] MED LIST changes: -Benzocaine 20% Spray 60 ML CAN ONE; +Iopamidol 370 76% 100 ML VIAL ONE
[2020-01-21] MEDS ORDERED: Morphine 4 MG/ML VIAL ONE (17:22)
[2020-01-21] MEDS ORDERED: Ondansetron PF 4 MG/2 ML Vial ONE (17:22)
[2020-01-21 17:26] LABS: #Basophils 0.1 thou/uL (0.0-0.2); #Eosinphils 0.2 thou/uL (0.0-0.7); #Lymphocytes 2.7 thou/uL (1.20-3.40); #Monocytes 0.9 thou/uL (0.11-0.59); #Neutrophils 6.5 thou/uL (1.40-6.50); %Basophils 0.7 % (0.0-1.0); %Eosinophils 1.7 % (0.0-10.0); %Monocytes 9.1 % (0.0-10.0); %Neutrophils 62.6 % (42.0-75.0); Hemoglobin 11.6 g/dL (12.0-16.0); Mean Corpuscular HGB CONC 33.2 g/dL (32.0-36.0); Mean Corpuscular Hemoglobin 31.3 pg (27.0-31.0); Mean Corpuscular Volume 94.4 fL (78.0-98.0); Mean Platelet Volume 8.8 fL (7.4-10.4); Platelet Count 268 thou/uL (130-400); RBC Distribution Width 12.6 % (11.5-14.5); White Blood Cell (WBC) Count 10.3 thou/uL (4.8-10.8)
[2020-01-21 18:05] LABS: ALT (SGPT) 13 U/L (8-55); AST (SGOT) 16 U/L (5-34); Albumin 4.5 g/dL (3.4-4.8); Alkaline Phosphatase 105 U/L (40-110); Anion Gap 18 mmol/L (10-20); BUN (Urea Nitrogen) 19 mg/dL (9.8-20.1); Bilirubin, Total 0.3 mg/dL (0.2-1.2); Calc. Creatinine Clearance 0 mL/min (70-130); Calcium 9.9 mg/dL (7.8-10.44); Carbon Dioxide 23 mmol/L (23-31); Chloride 104 mmol/L (98-107); Estimated GFR-MDRD 48; Globulin 4.3 g/dL (2.4-3.5); Glucose 86 mg/dL (83-110); Protein, Total 8.8 g/dL (6.0-8.3); Sodium 141 mmol/L (136-145)
--- NOTE | 2020-01-21 18:54 | CT ---
CT ANGIOGRAM CHEST WITH CONTRAST CT ANGIOGRAM ABDOMEN WITH CONTRAST 01/21/20 HISTORY: Chest pain. COMPARISON: CT angiogram from 2017. FINDINGS: CT angiogram of the chest and abdomen performed after the intravenous administration of contrast. 3D rendering provided. The thoracic aorta is nonaneurysmal. No dissection. There is mild atherosclerotic plaque in the distal abdominal aorta. There is some ulcerative plaque o n the anterior wall abdominal aorta distally just before the inferior mesenteric artery takeoff. The greatest dimension of the aorta at this level measures approximately 1.7 cm. No pericardial effusion. Although limited, there is no proximal segmental pulmonary arterial filling defect. No mediastinal adenopathy. The esophagus is unremarkable. Mild bronchiectasis in the lower lobes. There is some scarring in the lower lobe adjacent to the righ t lateral thoracic spine osteophytes. A few calcified subcarinal lymph nodes. Mild fibrosis in both lower lobes. There is no air space consolidation, pneumothorax or effusion. Mediastinum and manubrium are intact. No thoracic spine compression deformity. Incomplete evaluation of the lower cervical spine anterior and posterior fusion hardware. Celiac trunk, superior mesenteric artery are patent. The inferior mesenteric artery origin is highly narrowed, 60-70% narrowing with adequate distal flow. No acute displaced rib fracture. Within the abdomen, the pancreas and spleen are unremarkable. No intrahepatic or extrahepatic biliary dilatation. The adrenal glands are unremarkable. There are no dilated loops of large or small bowel. A portion of the pancreas was felt to be visualiz ed and appears normal. No hydronephrosis. No abnormal renal enhancing mass. IMPRESSION: 1. No aneurysmal dilatation of the aorta nor dissection. 2. Focal ulcerative plaque anterior wall distal abdominal aorta just before the inferior mesente marshal artery takeoff without aneurysmal dilatation. 3. 60-70% narrowing of the ostia of the inferior mesenteric artery due to soft plaque. 4. Mild fibrosis in the lower lobes. This has mildly progressed from the 2017 exam. POS: HOME
[2020-01-21] MEDS ORDERED: Ondansetron ODT 4 MG TAB ONE (20:16)
== END 2020-01-21 20:21 | disposition home or self-care (01) ==
LOC: ERS 15:49
DX: M54.6 Pain in thoracic spine (principal); M25.512 Pain in left shoulder; E11.9 Type 2 diabetes mellitus without complications; Z79.84 Long term (current) use of oral hypoglycemic drugs
CPT/HCPCS: 71275; 72191; 74175; 80053; 84484; 85025; 93005; 96374; 96375; 99284; J2270; J2405; Q0162; Q9967

== ENCOUNTER 2020-04-19 13:01 | Outpatient (CLI) | payer MEDICARE, BC ==
--- NOTE | 2020-04-19 13:30 | RAD ---
Exam: Cervical spine 3 views: HISTORY: Status post cervical spine fusion COMPARISON: 01/09/2020 FINDINGS: Anterior metal plate and screws and posterior fusion changes noted at C4, C5, C6, and C7 with intradi scal prosthesis. No significant malalignment. Stable appearance from prior study. IMPRESSION: Stable extensive postoperative changes of the cervical spine.
== END 2020-04-19 13:02 | disposition home or self-care (01) ==
LOC: BICRAD 13:01
PROVIDERS: ATTEND Surgery
DX: Z47.89 Encounter for other orthopedic aftercare (principal); Z98.1 Arthrodesis status
CPT/HCPCS: 72040

== ENCOUNTER 2020-06-29 11:40 | Inpatient (IN) | payer MEDICARE, BC, OTHER ==
[~2020-06-29 11:40] MED LIST changes: -Iopamidol 370 76% 100 ML VIAL ONE; +Iopamidol-370 76% 500 ML 1 ML ONE
[2020-06-29] MEDS ORDERED: Ondansetron PF 4 MG/2 ML Vial ONE (11:45)
[2020-06-29] MEDS ORDERED: Morphine 4 MG/ML VIAL ONE (11:45)
[2020-06-29 12:01] LABS: #Basophils 0.1 thou/uL (0.0-0.2); #Eosinphils 0.1 thou/uL (0.0-0.7); #Lymphocytes 3.2 thou/uL (1.20-3.40); #Monocytes 0.9 thou/uL (0.11-0.59); #Neutrophils 5.5 thou/uL (1.40-6.50); %Basophils 0.7 % (0.0-1.0); %Eosinophils 0.7 % (0.0-10.0); %Lymphocytes 32.8 % (21.0-51.0); %Monocytes 9.4 % (0.0-10.0); %Neutrophils 56.4 % (42.0-75.0); Hemoglobin 12.8 g/dL (12.0-16.0); Mean Corpuscular HGB CONC 32.6 g/dL (32.0-36.0); Mean Corpuscular Hemoglobin 30.2 pg (27.0-31.0); Mean Corpuscular Volume 92.6 fL (78.0-98.0); Platelet Count 246 thou/uL (130-400); RBC Distribution Width 13.3 % (11.5-14.5); Red Blood Cell (RBC) Count 4.25 mill/uL (4.20-5.40); White Blood Cell (WBC) Count 9.8 thou/uL (4.8-10.8)
[2020-06-29 12:08] LABS: INR-International Normal Ratio 0.9; PTT 27.5 sec (22.9-36.1); Prothrombin Time 12.3 sec (12.0-14.7)
[2020-06-29 12:24] LABS: ALT (SGPT) 31 U/L (8-55); AST (SGOT) 46 U/L (5-34); Albumin 3.9 g/dL (3.4-4.8); Alkaline Phosphatase 81 U/L (40-110); Anion Gap 18 mmol/L (10-20); BUN (Urea Nitrogen) 22 mg/dL (9.8-20.1); Bilirubin, Total 0.4 mg/dL (0.2-1.2); Calc. Creatinine Clearance 0 mL/min (70-130); Calcium 9.4 mg/dL (7.8-10.44); Carbon Dioxide 19 mmol/L (23-31); Chloride 104 mmol/L (98-107); Estimated GFR-MDRD 47; Globulin 3.8 g/dL (2.4-3.5); Glucose 96 mg/dL (83-110); Lipase 584 U/L (8-78); Potassium 4.2 mmol/L (3.5-5.1); Protein, Total 7.7 g/dL (6.0-8.3); Sodium 137 mmol/L (136-145)
--- NOTE | 2020-06-29 12:45 | CT ---
EXAM: CT angiogram abdomen and pelvis with IV contrast and 3-D reconstructions PROVIDED CLINICAL HISTORY: Severe abdominal pain. Back and abdominal pain. Concern for abdominal aortic aneurysm. COMPARISON: 01/21/2020 FINDINGS: There are mild chronic interstitial lung changes at each lung base slightly greater amount of groundg lass opacities at the left lung base which could be related to superimposed more acute infectious or inflammatory process There is mild interstitial thickening seen in the left lower lobe. As noted on the prior examination, there is atherosclerotic plaque and irregularity with associated v ascular calcifications involving the abdominal aorta and iliac arteries. Again noted is the atherosclerotic plaque in the anterior aspect of the infrarenal abdominal aorta which is stable when compared to prior exam. There is no evidence of an aortic dissection or aneurysm. The celiac and superior mesenteric arteries are patent. Moderate narrowing at the origin of the infer ior mesenteric artery is present. There are 2 patent bilateral renal arteries. Atherosclerotic plaque and calcifications involving the iliac arteries with [id number] narrowing involving the origins of the internal iliac arteries. The common iliac and external iliac arteries demonstrated no high-grade stenosis. Common femoral arteries are patent. There is heterogeneity of the liver and spleen most compatible with phase of enhancement. The pancreas, bilateral adrenal glands, and kidneys demonstrate a normal CT appearance. Evidence of colonic diverticulosis. Loops of small bowel are normal in caliber. There is no bowel wal l thickening present. Appendix is visualized and normal in caliber. No free fluid, fluid collection, or lymphadenopathy is seen in the abdomen or pelvis. The incompletely distended urinary bladder and uterus demonstrate a normal CT appearance for phase of imaging. Degenerative changes are again seen in the spine. IMPRESSION: 1. Atherosclerotic plaque involving the abdominal aorta and iliac arteries including a focal ulcerati ve plaque in the anterior wall infrarenal abdominal aorta. No aortic dissection or aneurysm is seen. 2. Patent celiac and superior mesenteric arteries with moderate narrowing involving the origin of the inferior mesenteric artery. 3. Chronic fibrotic lung changes at each lung base with slightly greater patchy areas of groundglass density at the left lung base which may be related to superimposed more acute infectious or inflammatory process. 4. Loops of small bowel are normal in caliber without bowel wall thickening present. 5. Colonic diverticulosis.
--- NOTE | 2020-06-29 13:56 | HP ---
PRIMARY CARE PROVIDER: Dr. Christiano Sosa. HISTORY OF PRESENT ILLNESS: She was in Dr. Sosa's office this morning with 2-day history of pain in her right buttocks down into her right thigh. He had gone to get some medicines for an injection when she suddenly had severe epigastric pain went through to her back, some nausea, and some emesis. She states she has had no change in bowel movements. No bleeding. She is referred to [facility], where I was called for admission. PAST MEDICAL HISTORY: Includes diabetes mellitus type 2, hypertension, dyslipidemia, and diabetic neuropathy. PAST SURGICAL HISTORY: Includes C-spine surgery and cholecystectomy. ALLERGIES: PENICILLIN AND TIZANIDINE. CURRENT MEDICINES: 1. Lipitor 40 once a day. 2. Farxiga 10 mg a day. 3. Losartan 25 mg a day. 4. Lyrica 75 mg a day. 5. Aspirin 81 mg a day. FAMILY HISTORY: Mother and father both with coronary artery disease. She has one sibling with diabetes. She is . She states clearly, she is DNAR. Her son is Stephen Garg. No tobacco. No alcohol. REVIEW OF SYSTEMS: GENERAL: She has had a little dizziness with the present illness, but no headaches, no fainting. EYES: No double vision, blurred vision, or flashing lights. EAR, NOSE, AND THROAT: No ear pain or drainage. No nasal bleeding. No trouble swallowing. CARDIAC: No chest pain, orthopnea, or paroxysmal nocturnal dyspnea. RESPIRATIONS: No cough, wheezing, or asthma. GASTROINTESTINAL: See present illness. GENITOURINARY: No hematuria or dysuria. MUSCULOSKELETAL: No pain or swelling in her legs other than that mentioned in her right buttocks and thigh. NEUROLOGICAL: No strokes, seizures, or focal weakness. SKIN: No bruising, bleeding, or rash. HEME/LYMPH: No tender or swollen lymph nodes in axilla, inguinal, or cervical area. PSYCHIATRIC: No anxiety or depression. PHYSICAL EXAMINATION: GENERAL: She is alert, oriented, and cooperative, pleasant lady, who is fully competent. VITAL SIGNS: Blood pressure 123/63, pulse 64, and respirations 16. Pain was related as an 8 when she came in. It is relieved at the present time. Temperature 97.7. HEAD, EYES, EARS, NOSE, AND THROAT: Revealed pupils are equal, round, and reactive to light. Extraocular movements are intact. Sclerae are white. Tympanic membranes are clear. Nose is clear. Throat is clear. NECK: Supple without jugular venous distention, adenopathy, or thyromegaly. CHEST: Clear to auscultation and percussion. HEART: Regular rate and rhythm. First and second heart sounds are clear. No appreciated murmurs or gallops. ABDOMEN: Has diffuse epigastric to left upper quadrant tenderness, mild with no rebound or guarding. Bowel sounds are detectable. No hepatosplenomegaly or mass was noted. No bruit was heard. EXTREMITIES: Reveal no cyanosis, clubbing, or edema. PULSES: Carotid, radial, femoral, and dorsalis pedis pulses intact. SKIN: Warm and dry without bruises or rash. HEME/LYMPH: No tender or swollen lymph nodes in axilla, inguinal, or cervical area. NEUROLOGIC: Cranial nerves 2 through 12 are intact. Moves all extremities. Toes downgoing. DIAGNOSTIC STUDIES: EKG normal, reviewed by myself. CT scan reportedly unremarkable. Awaiting for formal review. In my personal review, I see no distinct abnormalities. She does have a missing gallbladder. LABORATORY DATA: Comprehensive metabolic profile; sodium 137, CO2 of 19, potassium 4.2, creatinine 1.11, BUN 22, AST 46, and ALT 31. CBC is really unremarkable. ADMITTING DIAGNOSES: 1. Abdominal pain. 2. Pancreatitis, acute. 3. Diabetes mellitus type 2. 4. Acute renal failure. 5. Metabolic acidosis. 6. Dyslipidemia. 7. Hypertension. 8. Right hip and buttocks pain. PLAN: 1. N.p.o. 2. IV fluids. 3. Analgesia with morphine 4 mg q.4 hours p.r.n. pain. 4. Serial lipase. 5. Hyperglycemia protocol with q.4 hours Accu-Cheks and a moderate sliding scale, adjust as needed. 6. Serial basic metabolic profile to monitor renal function. Job ID: [id number]
[2020-06-29 14:12] LABS: Bilirubin Negative (Negative); Blood, Urine Negative (Negative); Clarity Clear (Clear); Glucose, Urine (Dipstick) Greater than 1000 mg/dL (Negative); Ketone, Urine Negative (Negative); Leukocyte Negative Leu/uL (Negative); Nitrite Negative (Negative); Protein, Urine (Dipstick) Negative (Neg-Trace); Specific Gravity, Urine 1.043 (1.002-1.036); Urobilinogen Normal mg/dL (Less than 2)
[2020-06-29 15:06] LABS: Lactic Acid 1.6 mmol/L (0.5-2.2)
[2020-06-29] MEDS ORDERED: Dextrose 50% Abboject 50 ML SYRINGE SLOW IVP PRN (15:39)
[2020-06-29] MEDS ORDERED: Labetalol HCl 100 MG/20 ML VIAL SLOW IVP PRN (15:39)
[2020-06-29] MEDS ORDERED: Dextrose 5% in Water 1,000 ML IV PRN (15:39)
[2020-06-29] MEDS ORDERED: HumaLOG 300 UNITS/3 ML VIAL SC PRN (15:39)
[2020-06-29] MEDS ORDERED: hydrALAZINE 20 MG/ML VIAL SLOW IVP PRN (15:39)
[2020-06-29] MEDS ORDERED: Zolpidem Tartrate 5 MG TAB PO PRN (15:39)
[2020-06-29] MEDS ORDERED: Acetaminophen 650 MG Suppository PR PRN (15:39)
[2020-06-29] MEDS: Sodium Chloride 0.9% 1,000 ML IV SCH (16:00)
[2020-06-29] MEDS: Morphine 4 MG/ML VIAL SLOW IVP PRN ×2 (16:15→20:55)
[2020-06-29] MEDS: Ondansetron PF 4 MG/2 ML Vial IVP PRN (18:15)
[2020-06-30] MEDS ORDERED: Acetaminophen 500 MG TAB PO PRN (04:37)
--- NOTE | 2020-06-30 04:44 | PDOC.HOSPP ---
- Subjective Encounter Date: 06/30/20 Encounter Time: 09:00 Subjective: overnight, multiple episodes of small volume vomting. This morning, epigastric pain improved. Complains of lower back back radiating to buttocks and posterior thigh that is chronic. otherwise no complaints. - Objective Vital Signs & Weight: Vital Signs (12 hours) Temp Pulse Resp BP Pulse Ox 06/30/20 04:05 98.1 F 63 18 158/52 H 06/30/20 00:50 98 F 60 16 128/68 06/29/20 20:45 98.1 F 54 L 16 132/61 98 06/29/20 20:40 98.1 F 54 L 16 132/61 98 Weight Weight 149 lb 7.574 oz I&O: 06/28/20 06/29/20 06/30/20 06:59 06:59 06:59 Intake Total 400 Output Total 300 Balance 100 Result Diagrams: 06/29/20 11:52 06/30/20 05:14 Hospitalist ROS - Review of Systems Constitutional: denies: chills, sweats Respiratory: denies: cough, dry, shortness of breath Cardiovascular: denies: chest pain, palpitations, orthopnea Gastrointestinal: denies: nausea, vomiting, abdominal pain, diarrhea Genitourinary: denies: dysuria, frequency, incontinence, hematuria - Medication Medications: Active Medications Generic Name Dose Route Start Last Admin Trade Name Freq PRN Reason Stop Dose Admin Sodium Chloride 1,000 mls @ 100 mls/hr 06/29/20 15:39 06/29/20 16:00 Normal Saline 0.9% IV 1,000 mls .Q10H PETTY Administration Morphine Sulfate 4 mg 06/29/20 15:39 06/29/20 20:55 Morphine 4 Mg/Ml Vial SLOW IVP 4 mg Q4H PRN Administration Mild Pain (1-3) Ondansetron HCl 4 mg 06/29/20 15:39 06/29/20 18:15 Ondansetron Pf 4 Mg/2 Ml Vial IVP 4 mg Q6H PRN Administration Nausea/Vomiting - Exam General Appearance: NAD, awake alert Neck: no JVD Heart: RRR, no murmur, no gallops, no rubs Respiratory: CTAB, no wheezes, no rales, no ronchi Gastrointestinal - other findings: epigastric and RUQ tenderness; positive mace's sign Extremities: no edema Psychiatric: normal affect, normal behavior, A&O x 3 Hosp A/P - Plan #mild acute pancreatitis - stopped farxiba since may have been diuresis induced pancreatitis; abd u/s; supportive care #chronic aortic syndrome - infrarenal ulcer, stable compared to 01/2020; medical management #T2DM - sliding scale ELOS: 2-3 nights
[2020-06-30 05:40] LABS: Anion Gap 13 mmol/L (10-20); BUN (Urea Nitrogen) 15 mg/dL (9.8-20.1); Calc. Creatinine Clearance 54 mL/min (70-130); Carbon Dioxide 23 mmol/L (23-31); Chloride 107 mmol/L (98-107); Estimated GFR-MDRD 60; Glucose 108 mg/dL (83-110); Potassium 4.2 mmol/L (3.5-5.1); Sodium 139 mmol/L (136-145)
[2020-06-30] MEDS: Pregabalin 75 MG CAP PO SCH ×2 (08:03→20:22)
[2020-06-30] MEDS: Fish Oil 1,000 MG CAP PO SCH ×2 (08:03→20:22)
[2020-06-30] MEDS: Aspirin Chewable 81 MG TAB PO SCH (08:04)
[2020-06-30] MEDS: Enoxaparin Sodium 40 MG/0.4 ML SYRINGE SC SCH (08:04)
[2020-06-30] MEDS: Morphine 4 MG/ML VIAL SLOW IVP PRN ×2 (08:04→14:42)
[2020-06-30] MEDS: Cholecalciferol 1,000 UNITS (25 MCG) TAB PO SCH (08:04)
[2020-06-30] MEDS: Ondansetron PF 4 MG/2 ML Vial IVP PRN ×2 (09:02→14:42)
[2020-06-30] MEDS: Sodium Chloride 0.9% 1,000 ML IV SCH ×3 (09:04→20:35)
[2020-06-30] MEDS: Leflunomide 10 mg Tablet PO SCH (10:29)
[2020-06-30] MEDS: Losartan 25 MG TAB PO SCH (10:29)
[2020-06-30 12:04] LABS: SARS-CoV-2 MS2 Positive; SARS-CoV-2 N Gene Negative; SARS-CoV-2 S Gene Negative; SARS-CoV-2 by NAA Not Detected (NotDetected); SARS-CoV-2 orf1ab Negative
[2020-06-30] MEDS ORDERED: Sodium Chloride 0.9% 10 ML ONE (14:45)
--- NOTE | 2020-06-30 15:55 | ULT ---
EXAM: US Gallbladder RUQ CLINICAL HISTORY: Evaluate for gallbladder disease in the setting of acute pancreatitis COMPARISON: None. FINDINGS: Pancreas: Obscured by bowel gas Liver:Hepatic parenchyma has a normal echotexture. No hepatic masses or intrahepatic biliary dilatati on. Right hepatic lobe: 13.9 cm Gallbladder: Surgically absent Kumar's sign:Not applicable Portal Vein: Patent. Appropriate directional flow Bile ducts: 0.9 cm common bile duct diameter Right kidney: No hydronephrosis. Right kidney measures 9.3 cm in length. IMPRESSION: 1. Surgically absent gallbladder.
[2020-06-30] MEDS ORDERED: Ondansetron PF 4 MG/2 ML Vial IVP PRN (17:23)
[2020-06-30] MEDS ORDERED: Morphine 4 MG/ML VIAL SLOW IVP PRN (17:54)
[2020-06-30] MEDS ORDERED: Acetaminophen 325 MG TAB PO PRN (17:55)
[2020-06-30] MEDS ORDERED: Atorvastatin Calcium 40 MG TAB PO SCH (21:00)
[2020-07-01 06:12] LABS: Phosphorus 2.2 mg/dL (2.3-4.7)
[2020-07-01 06:14] LABS: Anion Gap 10 mmol/L (10-20); BUN (Urea Nitrogen) 12 mg/dL (9.8-20.1); Calc. Creatinine Clearance 62 mL/min (70-130); Calcium 7.9 mg/dL (7.8-10.44); Carbon Dioxide 24 mmol/L (23-31); Chloride 109 mmol/L (98-107); Estimated GFR-MDRD 70; Glucose 72 mg/dL (83-110); Magnesium 1.9 mg/dL (1.6-2.6); Sodium 139 mmol/L (136-145)
[2020-07-01] MEDS: Cholecalciferol 1,000 UNITS (25 MCG) TAB PO SCH (08:03)
[2020-07-01] MEDS: Leflunomide 10 mg Tablet PO SCH (08:03)
[2020-07-01] MEDS: Pregabalin 75 MG CAP PO SCH (08:03)
[2020-07-01] MEDS: Fish Oil 1,000 MG CAP PO SCH (08:03)
[2020-07-01] MEDS: Losartan 25 MG TAB PO SCH (08:04)
[2020-07-01] MEDS: Enoxaparin Sodium 40 MG/0.4 ML SYRINGE SC SCH (08:04)
[2020-07-01] MEDS: Aspirin Chewable 81 MG TAB PO SCH (08:04)
[2020-07-01] MEDS ORDERED: Sodium Phosphate 15 MMOL in Sodium Chloride 0.9% 250 ML 250 ML IVPB SCH (09:15)
[2020-07-01] MEDS: Sodium Chloride 0.9% 1,000 ML IV SCH (09:38)
[2020-07-01] MEDS ORDERED: traMADol HCl 50 MG TAB PO PRN (10:18)
[2020-07-01 12:13] VITALS: BP 150/70; TEMP 98.8
--- NOTE | 2020-07-01 22:59 | DIS ---
DATE OF ADMISSION: 06/29/2020 DATE OF DISCHARGE: 07/01/2020 HOSPITAL COURSE: Ms. Rosenbaum is a 80-year-old female, with a medical history of type 2 diabetes, hypertension, dyslipidemia, and diabetic neuropathy, who presented with acute epigastric pain radiating to the back. She was diagnosed with acute pancreatitis. Following the workup, the patient's Farxiga was stopped because it does seem to diuresis as a result of the Farxiga resulted in acute pancreatitis and absence of evidence for an attentive etiology. The patient improved over the two days of inpatient stay and on the day of discharge, tolerated regular diet. She was discharged home hemodynamically stable with no epigastric pain. PHYSICAL EXAMINATION: VITAL SIGNS: Blood pressure 150/70, pulse 72, respiratory rate 18, oxygen saturation 96% on room air, and temperature 98.8. GENERAL: Lying comfortably in bed. Awake and alert, obese. HEENT: Normocephalic and atraumatic. CARDIAC: Regular rate and rhythm. No murmurs, gallops, or rubs. LUNGS: Clear to auscultation bilaterally. No wheezing, rales, or rhonchi. GI: Soft and nondistended. Normal bowel sounds. Mild epigastric tenderness. EXTREMITIES: No edema. PSYCHIATRIC: Proper mood and affect. Alert and oriented x3. MEDICATION LIST: New medications. 1. Tramadol 50 mg p.o. q.6 hours p.r.n. pain. 2. Zofran 8 mg p.o. t.i.d. p.r.n. nausea, vomiting. Discontinued medications. Farxiga (blood glucose was well controlled as inpatient without Farxiga). Continued medications: 1. Metformin. 2. Esomeprazole. 3. Aspirin. 4. Pregabalin. 5. Fish oil. 6. Atorvastatin. 7. Leflunomide. 8. Losartan. 9. Vitamin D. 10. Januvia. 11. Tylenol. Job ID: [id number]
== END 2020-07-01 14:40 | disposition home or self-care (01) | DRG 439 ==
LOC: ERS 11:40 → ERHOLD 13:06 → 3SE 15:27
PROVIDERS: ADMIT Internal Medicine; ATTEND Internal Medicine
DX: K85.90 Acute pancreatitis without necrosis or infection, unspecified (principal); N17.9 Acute kidney failure, unspecified; E87.2 Acidosis; Z20.828 Contact with and (suspected) exposure to other viral communicable diseases; M31.4 Aortic arch syndrome [Takayasu]; I10 Essential (primary) hypertension; E78.5 Hyperlipidemia, unspecified; E11.40 Type 2 diabetes mellitus with diabetic neuropathy, unspecified; Z90.49 Acquired absence of other specified parts of digestive tract; Z88.0 Allergy status to penicillin; Z88.8 Allergy status to other drugs, medicaments and biological substances; Z79.899 Other long term (current) drug therapy; Z79.82 Long term (current) use of aspirin
CPT/HCPCS: 36415; 36416; 74174; 76705; 80048; 80053; 81003; 83605; 83690; 83735; 84100; 85025; 85610; 85730; 87635; 93005; 94760; 96361; 96374; 96375; J1650; J2270; J2405; J7050; Q9967; U0003

== ENCOUNTER 2020-10-02 11:06 | Outpatient (CLI) | payer MEDICARE ==
--- NOTE | 2020-10-02 11:58 | RAD ---
XR Cerv Sp Ap Lat STANDARD History: Cervical radiculopathy Comparison: Radiographs April 2020 Findings: Similar appearance anterior and posterior fixation hardware C4-C7 with discectomy cage is. No acute fracture. No significant subluxation. No evidence for hardware failure. Moderate right C1/C2 articular narrowing. Ribs are intact. Impression: Continued satisfactory postoperative appearance.
== END 2020-10-02 11:07 | disposition home or self-care (01) ==
LOC: BICRAD 11:06
PROVIDERS: ATTEND Physician Assistant
DX: M54.12 Radiculopathy, cervical region (principal); R20.2 Paresthesia of skin; Z98.890 Other specified postprocedural states
CPT/HCPCS: 72040

== ENCOUNTER 2021-10-29 09:37 | Outpatient (CLI) | payer BC, MEDICARE | END 2021-10-29 09:38 | disposition home or self-care (01) | LOC: BICRAD 09:37 | PROVIDERS: ATTEND Surgery | DX: M47.22 Other spondylosis with radiculopathy, cervical region (principal); Z98.890 Other specified postprocedural states | CPT/HCPCS: 72040 ==

== ENCOUNTER 2023-09-14 16:10 | Emergency (ER) | payer BC, MEDICARE ==
[2023-09-14 18:35] LABS: #Eosinphils 0.2 thou/uL (0.0-0.7); #Monocytes 0.8 thou/uL (0.11-0.59); #Neutrophils 4.1 thou/uL (1.40-6.50); %Basophils 0.5 % (0.0-1.0); %Eosinophils 2.3 % (0.0-10.0); %Monocytes 10.2 % (0.0-10.0); %Neutrophils 52.6 % (42.0-75.0); Hematocrit 33.3 % (36.0-47.0); Hemoglobin 10.5 g/dL (12.0-16.0); Mean Corpuscular HGB CONC 31.5 g/dL (32.0-36.0); Mean Corpuscular Hemoglobin 30.1 pg (27.0-31.0); Mean Corpuscular Volume 95.4 fl (78.0-98.0); Mean Platelet Volume 11.5 fL (7.4-10.4); Platelet Count 197 10x3/uL (130-400); RBC Distribution Width 13.4 % (11.5-14.5); Red Blood Cell (RBC) Count 3.49 mill/uL (4.20-5.40); White Blood Cell (WBC) Count 7.7 10x3/uL (4.8-10.8)
[2023-09-14 19:00] LABS: ALT (SGPT) 18 U/L (8-55); AST (SGOT) 20 U/L (5-34); Alkaline Phosphatase 76 U/L (40-110); Anion Gap 13 mmol/L (10-20); BUN (Urea Nitrogen) 36 mg/dL (9.8-20.1); Bilirubin, Total 0.4 mg/dL (0.2-1.2); Calc. Creatinine Clearance 0 mL/min (70-130); Calcium 9.6 mg/dL (7.8-10.44); Carbon Dioxide 27 mmol/L (23-31); Chloride 103 mmol/L (98-107); Estimated GFR 42; Globulin 3.4 g/dL (2.4-3.5); Glucose 93 mg/dL (83-110); Potassium 4.8 mmol/L (3.5-5.1); Protein, Total 7.4 g/dL (5.8-8.1); Sodium 138 mmol/L (136-145)
[2023-09-14 19:01] LABS: Troponin I 0.015 ng/mL (< 0.028)
== END 2023-09-14 19:52 | disposition home or self-care (01) ==
LOC: ERS 16:10
DX: I10 Essential (primary) hypertension (principal); E11.9 Type 2 diabetes mellitus without complications
CPT/HCPCS: 36415; 71045; 80053; 84484; 85025; 93005